=== PATIENT | male | born 1995 | race Caucasian/White ===

== ENCOUNTER 2017-11-19 11:36 | Emergency (ER) | payer MEDICAID, OTHER ==
[2017-11-19 11:48] VITALS: BMI 22.1
[2017-11-19 11:51] VITALS: RESP 18; TEMP 98.6
[2017-11-19] MEDS ORDERED: Tetracaine 0.5% Ophth 2 ML BOTTLE OS ONE (12:38)
[2017-11-19] MEDS ORDERED: Fluorescein 1 mg Ophthalmic Strip OS ONE (12:38)
[2017-11-19] MEDS ORDERED: Fluorescein 1 mg Ophthalmic Strip ONE (12:47)
[2017-11-19] MEDS ORDERED: Tetracaine 0.5% Ophth (OR ONLY) ONE (12:47)
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
[2017-11-19 13:33] VITALS: BP 127/83; PULSE 76; O2SAT 99
== END 2017-11-19 13:32 | disposition home or self-care (01) ==
LOC: C.ER 11:36
DX: H11.32 Conjunctival hemorrhage, left eye (principal); S05.02XA Injury of conjunctiva and corneal abrasion without foreign body, left eye, initial encounter; X58.XXXA Exposure to other specified factors, initial encounter; Y92.9 Unspecified place or not applicable